=== PATIENT | female | born 1975 | race Caucasian/White ===

== ENCOUNTER 2018-02-14 08:54 | Day surgery (SDC) | payer BC ==
[~2018-02-14] VITALS: Ht 162.6 cm; Wt 67.1 kg
[2018-02-14 09:17] LABS: HCG,QUAL RESULT NEGATIVE (NEGATIVE)
[2018-02-14] MEDS ORDERED: SEVOFLURANE 15 MIN GAS INH ONE (10:10)
[2018-02-14] MEDS ORDERED: ONDANSETRON HCL 4 MG/2 ML VIAL IVP ONE (10:10)
[2018-02-14] MEDS ORDERED: fentaNYL CITRATE/PF 100 MCG/2 ML AMP IVP ONE (10:10)
[2018-02-14] MEDS ORDERED: MIDAZOLAM HCL 5 MG/5 ML VIAL IVP ONE (10:10)
[2018-02-14] MEDS ORDERED: KETOROLAC TROMETHAMINE 30 MG VIAL IVP ONE (10:10)
[2018-02-14] MEDS ORDERED: CEFAZOLIN 1 GM IVPB PREMIX 50 ML IV ONE (10:10)
[2018-02-14] MEDS ORDERED: PROPOFOL 200MG/ 20ML VIAL (DIPRIVAN) IV ONE (10:10)
[2018-02-14] MEDS ORDERED: ROCURONIUM BROMIDE 10 MG/ML (ZEMURON) IV ONE (10:10)
[2018-02-14] MEDS ORDERED: DEXAMETHASONE SOD PHOSPHATE 4 MG/ML VIAL IVP ONE (10:10)
[2018-02-14] MEDS ORDERED: LR 1,000 ML IV SCH (11:12)
[2018-02-14] MEDS ORDERED: MEPERIDINE HCL/PF 25 MG/ML DISP.SYRIN IVP PRN (11:15)
[2018-02-14] MEDS ORDERED: MORPHINE 2 MG/ML INJ. SYRINGE IVP PRN (11:15)
[2018-02-14 12:31] VITALS: BP_SYST 121
[2018-02-14] MEDS ORDERED: HYDROcodone/ACETAMIN 5-325 MG TAB (NORCO/ VICODIN) PO PRN (12:45)
== END 2018-02-14 13:10 | disposition home or self-care (01) ==
LOC: SDS 08:54 → SMU 08:54 → SDS 13:10
PROVIDERS: ATTEND Otolaryngology Plastic Surgery within the Head & Neck
DX: J32.9 Chronic sinusitis, unspecified (principal); J34.9 Unspecified disorder of nose and nasal sinuses; I48.91 Unspecified atrial fibrillation
CPT/HCPCS: 31240; 31267; 84703; 88305; A4649; J0690; J1100; J1885; J2250; J2405; J2704; J3010